=== PATIENT | male | born 1965 | race Caucasian/White ===

== ENCOUNTER 2016-10-17 10:08 | Emergency (ER) | payer BC ==
[2016-10-17 10:28] VITALS: BP 173/82
--- NOTE | 2016-10-17 11:34 | RAD ---
HISTORY: Pain and swelling, left testicle COMPARISONS: None TECHNIQUE: Multiple transverse and longitudinal ultrasound images were obtained of the scrotum, using grayscale, color Doppler, and spectral Doppler imaging. FINDINGS: RIGHT: RIGHT TESTICLE: The right testicle measures 5.6 x 2.5 x 3.4 cm. There is no testicular parenchymal mass. There are 2 microcalcifications noted within the right testicle. Normal arterial and venous waveforms are identified within the right testicle on spectral Doppler imaging. RIGHT EPIDIDYMIS: The right epididymis measures 1.3 cm at the head. RIGHT SCROTUM: There is a small right hydrocele. There is no varicocele. LEFT: LEFT TESTICLE: The left testicle measures 5.1 x 3.7 x 3.3 cm. The left testicle is homogeneous in echotexture, without testicular parenchymal mass. Normal arterial and venous waveforms are identified within the left testicle on spectral Doppler imaging. LEFT EPIDIDYMIS: The left epididymis measures 1.1 cm at the head. LEFT SCROTUM: There is a large left hydrocele. There is no varicocele. OTHER: None IMPRESSION: 1. NO SONOGRAPHIC FEATURES OF TORSION. PLEASE NOTE THAT PARTIAL OR INTERMITTENT TORSION MAY BE SONOGRAPHICALLY NORMAL. 2. NO TESTICULAR PARENCHYMAL MASS. THERE ARE 2 MICROCALCIFICATIONS OF THE RIGHT TESTICLE, WITHOUT MEETING THE CRITERIA FOR TESTICULAR MICROLITHIASIS. 3. LARGE LEFT HYDROCELE. SMALL RIGHT HYDROCELE.
--- NOTE | 2016-10-17 12:10 | UC ---
IMekhi,Anne, scribed for Effie Manning MD on 10/17/16 at 1048 . Complaint Male HPI - HPI Summary HPI Summary: This 51 y/o male presents to [facility] for left testicular swelling that was noted during bath yesterday. Pt denies any testicular pain, penile discharge, or hematuria, but reports that left testicle is tender to touch. He also denies any abd pain, but reports decreased urine flow, "drizzling off" since ~ 1 month ago. PMHx includes HTN, hernia s/p hernia surgeries, and hydrocele. He reports diffuse abd pain secondary to his last hernia surgery. 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 - History of Current Complaint Chief Complaint: UCGeneralIllness Stated Complaint: PERSONAL Hx Obtained From: Patient, Medical Records Onset/Duration: Sudden Onset Timing: Constant Severity Initially: Moderate Severity Currently: Moderate Location: Testicle Character: Constant Pressure Aggravating Factor(s): Nothing Alleviating Factor(s): Nothing Associated Signs And Symptoms: Negative: Dysuria, Penile Swelling, Penile Discharge - Risk Factors Testicular Torsion: Negative - Allergies/Home Medications Allergies/Adverse Reactions: Allergies Allergy/AdvReac Type Severity Reaction Status Date / Time Sulfa Antibiotics Allergy Intermediate Hives Verified 10/17/16 10:17 Home Medications: Home Medications Bp Med 1 tab QPM 10/17/16 [History] Lisinopril TAB* [Prinivil TAB 10 MG*] 20 mg DAILY 10/17/16 [History Confirmed ] PMH/Surg Hx/FS Hx/Imm Hx - Additional Past Medical History Additional PMH: Hydrocele, hernia s/p surgeries. Cardiovascular History Of: Reports: Cardiac Disorders - enlarged heart, Hypertension GI/ History Of: Reports: Gastroesophageal Reflux - Surgical History Surgical History: Yes Surgery Procedure, Year, and Place: umbilical and inguinal hernia repairs. - Family History Known Family History: Positive: Hypertension, Diabetes - Social History Alcohol Use: Rare Substance Use Type: None Smoking Status (MU): Never Smoked Tobacco Review of Systems Constitutional: Negative Skin: Negative Eyes: Negative ENT: Other - tinnitus Respiratory: Negative Cardiovascular: Negative Gastrointestinal: Abdominal Pain - secondary to hernia surgery Genitourinary: Other - left testicular swelling, dribbling urine Motor: Negative Neurovascular: Negative Musculoskeletal: Negative Neurological: Negative Psychological: Negative All Other Systems Reviewed And Are Negative: Yes Physical Exam Triage Information Reviewed: Yes Appearance: Well-Appearing, No Pain Distress, Obese Vital Signs: Initial Vital Signs Temp 98.1 F 10/17/16 10:20 Pulse 78 10/17/16 10:20 Resp 18 10/17/16 10:20 BP 173/82 10/17/16 10:20 Pulse Ox 96 10/17/16 10:20 Vital Signs Reviewed: Yes Eyes: Positive: Conjunctiva Clear ENT: Positive: Normal ENT inspection Neck: Positive: Nontender Respiratory: Positive: Lungs clear, Normal breath sounds, No respiratory distress Cardiovascular: Positive: RRR, No Murmur, Pulses Normal, Brisk Capillary Refill Abdomen Description: Positive: No Organomegaly, Soft, Other: - minimal tenderness around suprapubic region. Negative: Distended, Guarding Musculoskeletal: Positive: ROM Intact Neurological Exam: Normal Psychological Exam: Normal Skin Exam: Normal - Additional Comments exam: Swelling of scrotum. Penis is not visualized due to scrotal swelling. The penis not being visible is unchanged per pt. Only the swelling has increased. Mild tenderness left testicle. Difficult to palpate testicles, due to swelling, but no masses appreciated. Diagnostics - Laboratory Diagnostic Studies Completed/Ordered: US testicular -- 1. NO SONOGRAPHIC FEATURES OF TORSION. PLEASE NOTE THAT PARTIAL OR INTERMITTENT TORSION MAY BE SONOGRAPHICALLY NORMAL. 2. NO TESTICULAR PARENCHYMAL MASS. THERE ARE 2 MICROCALCIFICATIONS OF THE RIGHT TESTICLE,. WITHOUT MEETING THE CRITERIA FOR TESTICULAR MICROLITHIASIS. 3. LARGE LEFT HYDROCELE. SMALL RIGHT HYDROCELE. Re-Evaluation - Re-Evaluation First Eval Re-Evaluation Time: 11:49 Comment: MD in room to share US imaging result with pt. Plan of care Complaint Male Course/Dx - Differential Dx/Diagnosis Differential Diagnosis/HQI/PQRI: Cancer, Testicular Torsion, Other - hydrocele Provider Diagnoses: Hydrocele. testicular microcalcifications Discharge - Discharge Plan Condition: Stable Disposition: HOME Patient Education Materials: Hydrocele (ED) Referrals: Eliz Carbone MD [Primary Care Provider] - 2 Days Guillaume Grove MD [Medical Doctor] - 2 Days Additional Instructions: RETURN TO URGENT CARE FOR ANY NEW OR WORSENING SYMPTOMS The documentation as recorded by the Mekhi lee Soohyun accurately reflects the service I personally performed and the decisions made by Nigel haley Barbara J, MD.
== END 2016-10-17 11:57 | disposition home or self-care (01) ==
LOC: UCEAST 10:08
DX: N43.3 Hydrocele, unspecified (principal); N50.89 Other specified disorders of the male genital organs; Z88.2 Allergy status to sulfonamides
CPT/HCPCS: 76870; 81002; 99211; G0463

== ENCOUNTER 2018-11-27 08:05 | Inpatient (IN) | payer BC ==
[~2018-11-27 08:05] MED LIST: Buffered Lidocaine 1% SYRIN* 1 ML/SYRINGE INTRADERM ONE; Famotidine IV* 10 MG/ML 2 ML (20 mg) IV ONE; Lactated Ringers 1000 ML Bag* 1,000 ML IV SCH
--- OUTSIDE RECORDS SUMMARY | 2018-11-27 08:09 | XMS REPORT | Continuity of Care Document ---
:1965 External Reference #:[id number] Author Name Elba Morse Care Team Providers Name Role Phone Minal Flores MD Care Team Information Altitude Chamber Technician Unavailable Payers Date Identification Numbers Payment Provider Subscriber Effective: 2017 Policy Number: [id number] [facility] [employer] Ignacio Aly PayID: [id number] [address] [address] [place] [id number] Advance Directives Description No Information Available Problems Date Description Provider Status Onset: 09/13/2017 Benign essential hypertension Minal Flores MD Active Onset: 06/05/2018 Morbid obesity Minal Flores MD Active Onset: 06/05/2018 Mixed hyperlipidemia Minal Flores MD Active Onset: 06/05/2018 Obstructive sleep apnea syndrome Minal Flores MD Active Onset: 10/10/2018 Benign prostatic hypertrophy with Minal Flores MD Active outflow obstruction Family History Date Family Member(s) Observation Comments : (age Father due to Natural Causes Unsure causes 75 Years) Father Diabetes, Adult Father Hypertension Father Depression Father Glaucoma Father Hypercholesterolemia Onset: (age 70 Father Cancer, Lung age about 70 Years) diagnosis, long standing smoker Mother Migraine Headache Mother Thyroid Disease First Son Hearing Impaired First Daughter Hearing Impaired First Brother Hypertension First Brother Hypercholesterolemia First Brother Obesity First Sister Hypertension First Sister Obesity Social History Type Date Description Comments Sex Unknown Marital Status Marital Status 2 Times Lives With Spouse Work Status Currently Working shuttle bus driver for [employer] ETOH Use Rarely consumes alcohol Tobacco Use Start: Unknown Patient has never smoked Recreational Drug Use Denies Drug Use Smoking Status Reviewed: 11/13/18 Patient has never smoked Exercise Type/Frequency Exercises sporadically no regular, some walking at work; 09/13/17 counselled 150min per week 10k steps per day [facility] Allergies, Adverse Reactions, Alerts Date Description Reaction Status Severity Comments 09/13/2017 Sulfa Drugs hives Active Severe Medications Medication Date Status Form Strength Qnty SIG Indications Ordering Provider Vesicare Active Tablets 10mg 30tabs 1 by N40.1 [place], 018 mouth Guillaume H every day Lisinopril Active Tablets 40mg 30tabs take one I10 Flores 000 tablet by Minal MD mouth every day Metoprolol 0 Active Tablets ER 50mg 30tabs take one I10 Flores Succinate ER 000 24HR tablet by Minal MD mouth every night Tamsulosin Active Capsules 0.4mg 1 po R35.0 [place], HCL 000 daily at [facility] bedtime N40.1 Amlodipine Active Tablets 5mg 30tabs take one I10 Flores , Besylate tablet by MD Minal mouth every morning Cpap Active Device at hs G47.33 Unknown Naproxen Active Tablets 375mg prn Unknown B-12 Active Capsules 1000mc qd Unknown g Vesicare - Hx Tablets 5mg 1 po daily R35.0 [place]aim[place], 05/17/2018 in the Guillaume [facility] morning Immunizations CPT Code Status Date Vaccine Reaction Lot # [id number] Given 10/10/2018 Tdap (Adacel) Ages 7 And Above Only [id number] Refused 10/10/2018 Shingrix (Shingles) Zoster Vaccine will get at pharmacy HZV, Recombinant, Subunit, Adj [id number] Refused 10/10/2018 Shingrix (Shingles) Zoster Vaccine HZV, Recombinant, Subunit, Adj [id number] Refused 06/05/2018 Flu Vaccine NOS [id number] Refused 04/04/2018 Shingrix (Shingles) Zoster Vaccine HZV, Recombinant, Subunit, Adj [id number] Refused 04/04/2018 Tdap (Adacel) Ages 7 And Above Only [id number] Refused 09/13/2017 Influenza Virus Vaccine,Quadrivalent,Split,Preserv Free, 0.5mL,Im Vital Signs Date Vital Result Comment 11/13/2018 8:53am Body Temperature 97.6 F Weight 405.00 lb Heart Rate 72 /min BP Systolic 148 mmHg BP Diastolic 96 mmHg BP Systolic Recheck 140 mmHg BP Diastolic Recheck 80 mmHg BP Systolic Lying Down 116 mmHg at surgeons on 10/24 BP Diastolic Lying Down 70 mmHg at surgeons on 10/24 Respiratory Rate 20 /min Height 71.75 inches 5'11.75" BMI (Body Mass Index) 55.3 kg/m2 10/18/2018 9:53am Body Temperature 98.0 F Weight 413.00 lb Heart Rate 68 /min BP Systolic 132 mmHg BP Diastolic 90 mmHg Respiratory Rate 18 /min Height 71.75 inches 5'11.75" O2 % BldC Oximetry 97 % Ra BMI (Body Mass Index) 56.4 kg/m2 10/10/2018 9:39am Body Temperature 98.2 F Weight 381.00 lb Heart Rate 71 /min BP Systolic 138 mmHg BP Diastolic 90 mmHg BP Systolic Recheck 138 mmHg BP Diastolic Recheck 88 mmHg Respiratory Rate 20 /min Height 71.75 inches 5'11.75" O2 % BldC Oximetry 95 % ra BMI (Body Mass Index) 52.0 kg/m2 06/05/2018 4:20pm Body Temperature 98.5 F Weight 432.00 lb Heart Rate 74 /min BP Systolic 138 mmHg BP Diastolic 80 mmHg Respiratory Rate 20 /min Height 71.75 inches 5'11.75" BMI (Body Mass Index) 59.0 kg/m2 04/04/2018 2:35pm Weight 432.00 lb Heart Rate 86 /min BP Systolic 150 mmHg BP Diastolic 64 mmHg BP Systolic Recheck 136 mmHg per pt this morning Dot physcial BP Diastolic Recheck 88 mmHg per pt this morning Dot physcial Respiratory Rate 22 /min Height 71.75 inches 5'11.75" BMI (Body Mass Index) 59.0 kg/m2 01/03/2018 4:12pm Weight 416.00 lb Heart Rate 78 /min BP Systolic 136 mmHg BP Diastolic 74 mmHg Respiratory Rate 20 /min Height 71.75 inches 5'11.75" BMI (Body Mass Index) 56.8 kg/m2 10/05/2017 9:29am Weight 424.00 lb Heart Rate 80 /min BP Systolic 138 mmHg BP Diastolic 88 mmHg Respiratory Rate 18 /min Height 71.75 inches 5'11.75" BMI (Body Mass Index) 57.9 kg/m2 09/13/2017 1:33pm Weight 426.00 lb Heart Rate 76 /min BP Systolic 156 mmHg BP Diastolic 88 mmHg BP Systolic Recheck 146 mmHg home BP monitor BP Diastolic Recheck 96 mmHg home BP monitor Respiratory Rate 18 /min Height 71.75 inches 5'11.75" BMI (Body Mass Index) 58.2 kg/m2 Results Test Date Facility Test Result H/L Range Note Comprehensive Met Panel-[facility] 10/18/2018 [facility] Sodium 142 mmol/L 135- 146 1, 2 Potassium 4.0 mmol/L 3.5-5.2 Chloride# 107 mmol/L 97-110 3 Carbon Dioxide 27 mmol/L 24-34 Glucose 107 mg/dL High 70-105 BUN 11 mg/dL 6-26 Creatinine 1.0 mg/dL 0.5-1.4 Calcium 9.4 mg/dL 8.5-10.2 Total Protein 7.1 g/dL 6.0-8.0 Albumin 4.4 g/dL 3.6-4.9 Globulin 2.7 g/dL 2.0-3.5 A/G Ratio 1.6 Ratio 1.0-2.2 Total Bilirubin 1.3 mg/dL 0.1-1.3 Alkaline Phosphatase 64 U/L 24-140 Alt 26 U/L 3-42 Ast 16 U/L 8-42 Anion Gap 8 mmol/L 5-15 4 Yesenia Egfr >60 >60 5 Non Yesenia Egfr >60 >60 6 Rout Urine W/ Micro -RL 10/10/2018 [facility] Color YELLOW Appearance CLEAR Spec Grav Urine 1.021 (1.003-1.030) PH Urine 7.5 (5.0-7.5) Leuk Esterase NEGATIVE (Neg) Nitrite Urine NEGATIVE (Neg) Protein Urine NEGATIVE (Neg) Glucose Urine NEGATIVE (Neg) Ketone Urine NEGATIVE (Neg) Urobilinogen 1.0 mg/dL (0-1.0) Bilirubin Urine NEGATIVE (Neg) Blood/HGB Urine NEGATIVE (Neg) Epithelial Cells NEGATIVE [HPF] (Neg) Hyaline Casts 1.0 [LPF] (0-5) Bacteria NEGATIVE [HPF] (Neg) Urine WBC 0.5 [HPF] (0-8) Urine RBC 0.3 [HPF] (0-3) 7 Laboratory test 10/10/2018 [facility] Urine Culture Microbiology res <SEE 8 finding NOTE> Laboratory test 10/10/2018 [facility] Esr 7 mm/hr 0-15 9 finding CRP (C-Reactive) 0.28 mg/dL 0.00-0.75 CBC with Auto Diff-fcmg 10/10/2018 [facility] WBC 7.8 K/uL 4.1-11.0 RBC 5.11 M/uL 4.60-6.10 Hemoglobin 15.7 gm/dL 13.5-18.0 Hematocrit 45.0 % 41.0-53.0 MCV 88.0 fL 80.0-97.0 MCH 30.7 pg 27.0-32.0 MCHC 34.9 g/dL 32.0-36.0 RDW 14.2 % 11.5-14.5 PLT Count 238 K/ul 140-400 MPV 7.7 FL 7.1-10.7 Neutrophil 60.3 % 35.0-75.0 Lymphocyte 28.8 % 16.0-52.0 Monocyte 8.4 % 2.0-10.0 Eosinophil 1.5 % 0.0-5.0 Basophil 1.0 % 0.0-4.0 Abs Neutrophils 4.7 K/uL 2.1-8.0 Abs Lymphocytes 2.2 K/uL 0.8-5.5 Abs Monocytes 0.7 K/uL 0.1-1.0 Abs Eosinophils 0.1 K/uL 0.0-0.5 Abs Basophils 0.1 K/uL 0.0-0.3 Comprehensive Met Panel-[facility] 10/03/2018 [facility] Sodium 144 mmol/L 135- 146 10, 11 Potassium 3.7 mmol/L 3.5-5.2 Chloride# 110 mmol/L 97-110 12 Carbon Dioxide 24 mmol/L 24-34 Glucose 97 mg/dL 70-105 BUN 16 mg/dL 6-26 Creatinine 0.9 mg/dL 0.5-1.4 Calcium 9.1 mg/dL 8.5-10.2 Total Protein 6.8 g/dL 6.0-8.0 Albumin 4.3 g/dL 3.6-4.9 Globulin 2.5 g/dL 2.0-3.5 A/G Ratio 1.7 Ratio 1.0-2.2 Total Bilirubin 1.2 mg/dL 0.1-1.3 Alkaline Phosphatase 66 U/L 24-140 Alt 21 U/L 3-42 Ast 13 U/L 8-42 Yesenia Egfr >60 >60 13 Non Yesenia Egfr >60 >60 14 Anion Gap 10 mmol/L 5-15 15 Lipid 10/03/2018 [facility] Cholesterol 141 mg/dL 50-199 Triglycerides 90 mg/dL 30-200 HDL 37 mg/dL 29-71 16 Chol/ HDL Ratio 3.8 ratio Low 4.0-6.7 VLDL 18 mg/dL 2-29 LDL (Calc) 86 mg/dL 20-99 17 Laboratory test 06/16/2018 [facility] Vitamin B12 355 pg/ mL N [id number] 18 finding (315)- - Laboratory test 06/16/2018 [facility] Vitamin 24.6 ng/mL Low 30.0-100.0 19 finding (315)- - D,25-Hydroxy Ua RFX Micro & 04/24/2018 [facility] Urine Color YELLOW Yellow 20 Culture II (315)- - Urine Clarity CLEAR Clear Urine Glucose - Dipstick NEGATIVE mg/dL Negative Urine Bilirubin - Dipstick NEGATIVE Negative Urine Ketone NEGATIVE mg/dL Negative Urine Specific [place] 1.010 N 1.010-1.030 Urine Blood NEGATIVE Negative Urine PH 7.0 N 6.5-7.5 Urine Protein - Dipstick NEGATIVE mg/dL Negative Urine Urobilinogen - Dipstick 0.2 E.U./dL N 0.2-1.0 Urine Nitrite - Dipstick NEGATIVE Negative Urine Leuk Esterase NEGATIVE Negative Source: URINE, CLEAN CAT <SEE NOTE> 21 Comprehensive Met Panel-[facility] 03/27/2018 [facility] Sodium 141 mmol/L 135- 146 22, 23 Potassium 3.9 mmol/L 3.5-5.2 Chloride# 105 mmol/L 97-110 24 Carbon Dioxide 27 mmol/L 24-34 Glucose 89 mg/dL 70-105 BUN 13 mg/dL 6-26 Creatinine 1.1 mg/dL 0.5-1.4 Calcium 9.3 mg/dL 8.5-10.2 Total Protein 6.7 g/dL 6.0-8.0 Albumin 4.1 g/dL 3.6-4.9 Globulin 2.6 g/dL 2.0-3.5 A/G Ratio 1.6 Ratio 1.0-2.2 Total Bilirubin 1.2 mg/dL 0.1-1.3 Alkaline Phosphatase 56 U/L 24-140 Alt 33 U/L 3-42 Ast 18 U/L 8-42 Yesenia Egfr >60 >60 25 Non Yesenia Egfr >60 >60 26 Anion Gap 9 mmol/L 5-15 27 Lipid 03/27/2018 [facility] Cholesterol 178 mg/dL 50-199 Triglycerides 147 mg/dL 30-200 HDL 40 mg/dL 29-71 28 Chol/ HDL Ratio 4.4 ratio 4.0-6.7 VLDL 29 mg/dL 2-29 LDL (Calc) 108 mg/dL High 20-99 29 CBC With Auto Diff 09/13/2017 [facility] WBC 8.3 K/uL 4.1-11.0 30 RBC 5.09 M/uL 4.60-6.10 Hemoglobin 15.6 gm/dL 13.5-18.0 Hematocrit 45.2 % 41.0-53.0 MCV 88.9 fL 80.0-97.0 MCH 30.6 pg 27.0-32.0 MCHC 34.4 g/dL 32.0-36.0 RDW 14.0 % 11.5-14.5 PLT Count 289 K/ul 140-400 MPV 6.9 FL Low 7.1-10.7 Neutrophil 55.2 % 35.0-75.0 Lymphocyte 31.4 % 16.0-52.0 Monocyte 11.1 % High 2.0-10.0 Eosinophil 1.7 % 0.0-5.0 Basophil 0.6 % 0.0-4.0 Abs Neutrophils 4.6 K/uL 2.1-8.0 Abs Lymphocytes 2.6 K/uL 0.8-5.5 Abs Monocytes 0.9 K/uL 0.1-1.0 Abs Eosinophils 0.1 K/uL 0.0-0.5 Abs Basophils 0.1 K/uL 0.0-0.3 Comprehensive Met Panel-[facility]G 09/13/2017 [facility] Sodium 143 mmol/L 135- 146 31 Potassium 3.8 mmol/L 3.5-5.2 Chloride# 106 mmol/L 97-110 32 Carbon Dioxide 26 mmol/L 24-34 Glucose 101 mg/dL 70-105 Creatinine 0.9 mg/dL 0.5-1.4 Calcium 9.8 mg/dL 8.5-10.2 Total Protein 7.3 g/dL 6.0-8.0 Albumin 4.4 g/dL 3.6-4.9 Globulin 2.9 g/dL 2.0-3.5 A/G Ratio 1.5 Ratio 1.0-2.2 Total Bilirubin 0.8 mg/dL 0.1-1.3 Alkaline Phosphatase 62 U/L 24-140 Alt 29 U/L 3-42 Ast 16 U/L 8-42 Yesenia Egfr >60 >60 33 Non Yesenia Egfr >60 >60 34 Anion Gap 11 mmol/L 7-16 35 BUN 15 mg/dL 6-26 Lipid 09/13/2017 [facility] Cholesterol 173 mg/dL 50-199 Triglycerides 203 mg/dL High 30-200 HDL 40 mg/dL 29- 36 Chol/ HDL Ratio 4.4 ratio 4.0-6.7 VLDL 41 mg/dL High 2-29 LDL (Calc) 93 mg/dL - 37 Laboratory test finding 09/13/2017 [facility] TSH 1.46 uIU/mL 0.35-4.[address] and abd pain 2 Updated reference range on new analyzer 3 Updated reference range on new analyzer 4 Updated Reference Range 5 Concerning GFR Guidelines for Americans: Normal function or mild renal disease, if clinically at risk: >/=60 mL/min Moderately decreased: 30-59 Severely decreased: 15-29 Renal failure: <15 6 Concerning GFR Guidelines: Normal function or mild renal disease, if clinically at risk: >/=60 mL/min Moderately decreased: 30-59 Severely decreased: 15-29 Renal failure: <15 Glomerular Filtration Rate (GFR) is estimated based on the MDRD equation, which assumes a steady state for creatinine as recommended by the National Kidney Disease Education Program in conjunction with the National Institutes of Health and the National Kidney Foundation. Clinical conditions in which it may be necessary to measure GFR by using clearance methods include extremes of age and body size, severe malnutrition or obesity, diseases of skeletal muscle, paraplegia or quadriplegia, vegetarian diet, rapidly changing kidney function, and calculation of the dose of potentially toxic drugs that are excreted by the kidneys. 7 Unless otherwise specified, testing performed by [facility] [address] [place] [id number] Microbiology results SOURCE Clean Catch Midstream FINAL RESULT No growth 9 today abd pain, US pending 10 before vsiit 09/2018 11 Updated reference range on new analyzer 12 Updated reference range on new analyzer 13 Concerning GFR Guidelines for Americans: Normal function or mild renal disease, if clinically at risk: >/=60 mL/min Moderately decreased: 30-59 Severely decreased: 15-29 Renal failure: <15 14 Concerning GFR Guidelines: Normal function or mild renal disease, if clinically at risk: >/=60 mL/min Moderately decreased: 30-59 Severely decreased: 15-29 Renal failure: <15 Glomerular Filtration Rate (GFR) is estimated based on the MDRD equation, which assumes a steady state for creatinine as recommended by the National Kidney Disease Education Program in conjunction with the National Institutes of Health and the National Kidney Foundation. Clinical conditions in which it may be necessary to measure GFR by using clearance methods include extremes of age and body size, severe malnutrition or obesity, diseases of skeletal muscle, paraplegia or quadriplegia, vegetarian diet, rapidly changing kidney function, and calculation of the dose of potentially toxic drugs that are excreted by the kidneys. 15 Updated Reference Range 16 Per NCEP ATP III Guidelines: Results lower than 40 mg/dL are suggestive of increased risk for coronary artery disease. Results > or=to 60 mg/dL are considered a negative risk factor. 17 Per NCEP ATP III Guidelines: Normal Population <130 Patients with medical conditions: CHD/DM Optimal: <100 Borderline high: 130-159 High: 160-189 Very high: >189 18 E66.01 19 Vitamin D deficiency has been defined by the [place] of [employer] and an Endocrine Society practice guideline as a level of serum 25-OH vitamin D less than 20 ng/mL (1,2). The Endocrine Society went on to further define vitamin D insufficiency as a level between 21 and 29 ng/mL (2). 1. IOM ([place] of [employer]). 2010. Dietary reference intakes for calcium and D. [place]: The National Academies Press. 2. Jairon MF, Anne NC, Salvador BARBOZA, et al. Evaluation, treatment, and prevention of vitamin D deficiency: an Endocrine Society clinical practice guideline. JCEM. 2010; 96(7):1911-30. Performed at: RN - [facility] [address] [id number] Supervisor Advice: Cherise Luis MD, Phone: [phone] 20 LOWER LEFT BACK PAIN 21 URINE, CLEAN CATCH 22 before visit 03/2018 23 Updated reference range on new analyzer 24 Updated reference range on new analyzer 25 Concerning GFR Guidelines for Americans: Normal function or mild renal disease, if clinically at risk: >/=60 mL/min Moderately decreased: 30-59 Severely decreased: 15-29 Renal failure: <15 26 Concerning GFR Guidelines: Normal function or mild renal disease, if clinically at risk: >/=60 mL/min Moderately decreased: 30-59 Severely decreased: 15-29 Renal failure: <15 Glomerular Filtration Rate (GFR) is estimated based on the MDRD equation, which assumes a steady state for creatinine as recommended by the National Kidney Disease Education Program in conjunction with the National Institutes of Health and the National Kidney Foundation. Clinical conditions in which it may be necessary to measure GFR by using clearance methods include extremes of age and body size, severe malnutrition or obesity, diseases of skeletal muscle, paraplegia or quadriplegia, vegetarian diet, rapidly changing kidney function, and calculation of the dose of potentially toxic drugs that are excreted by the kidneys. 27 Updated Reference Range 28 Per NCEP ATP III Guidelines: Results lower than 40 mg/dL are suggestive of increased risk for coronary artery disease. Results > or=to 60 mg/dL are considered a negative risk factor. 29 Per NCEP ATP III Guidelines: Normal Population <130 Patients with medical conditions: CHD/DM Optimal: <100 Borderline high: 130-159 High: 160-189 Very high: >189 30 today ov fu 31 Updated reference range on new analyzer 32 Updated reference range on new analyzer 33 Concerning GFR Guidelines for Americans: Normal function or mild renal disease, if clinically at risk: >/=60 mL/min Moderately decreased: 30-59 Severely decreased: 15-29 Renal failure: <15 34 Concerning GFR Guidelines: Normal function or mild renal disease, if clinically at risk: >/=60 mL/min Moderately decreased: 30-59 Severely decreased: 15-29 Renal failure: <15 Glomerular Filtration Rate (GFR) is estimated based on the MDRD equation, which assumes a steady state for creatinine as recommended by the National Kidney Disease Education Program in conjunction with the National Institutes of Health and the National Kidney Foundation. Clinical conditions in which it may be necessary to measure GFR by using clearance methods include extremes of age and body size, severe malnutrition or obesity, diseases of skeletal muscle, paraplegia or quadriplegia, vegetarian diet, rapidly changing kidney function, and calculation of the dose of potentially toxic drugs that are excreted by the kidneys. 35 Updated reference range on new analyzer 36 Per NCEP ATP III Guidelines: Results lower than 40 mg/dL are suggestive of increased risk for coronary artery disease. Results > or=to 60 mg/dL are considered a negative risk factor. 37 Per NCEP ATP III Guidelines: Normal Population <130 Patients with medical conditions: CHD/DM Optimal: <100 Borderline high: 130-159 High: 160-189 Very high: >189 Procedures Date Code Description Status 11/13/2018 46420 Electrocardiogram Complete Completed 10/10/2018 43241 Brief Emotional/Behav Assessment W/ Scoring Doc Per Completed Standard Inst 01/23/2017 40809285 Colonoscopy Completed Encounters Type Date Location Provider Dx Diagnosis Office Visit 10/18/2018 [facility] Minal Flores, R10.812 LEFT upper quadrant 9:45a abdominal tenderness E66.01 Morbid (severe) obesity due to excess calories N28.1 Cyst of kidney, acquired R19.05 Periumbilic swelling, mass or lump Z68.43 Body mass index (BMI) 50-59.9, adult Office Visit 10/10/2018 9:30a [facility] Minal Flores MD R10.812 LEFT upper quadrant abdominal tenderness Z00.01 Encounter for general adult medical exam w abnormal findings I10 Essential (primary) hypertension E78.2 Mixed hyperlipidemia E66.01 Morbid (severe) obesity due to excess calories G47.33 Obstructive sleep apnea (adult) (pediatric) Z23 Encounter for immunization Z12.5 Encounter for screening for malignant neoplasm of prostate Z12.11 Encounter for screening for malignant neoplasm of colon N40.1 Benign prostatic hyperplasia with lower urinary tract symp Z68.44 Body mass index (BMI) 60.0-69.9, adult Z68.43 Body mass index (BMI) 50-59.9, adult Office Visit 06/05/2018 4:00p [facility] Minal Flores MD E66.01 Morbid ( severe) obesity due to excess calories I10 Essential (primary) hypertension E78.2 Mixed hyperlipidemia G47.33 Obstructive sleep apnea (adult) (pediatric) Z68.43 Body mass index (BMI) 50-59.9 , adult Office Visit 04/04/2018 3:00p [facility] Minal Flores MD I10 Essential ( primary) hypertension E78.2 Mixed hyperlipidemia G47.33 Obstructive sleep apnea (adult) (pediatric) R20.2 Paresthesia of skin R60.0 Localized edema R35.0 Frequency of micturition E66.01 Morbid (severe) obesity due to excess calories Z68.43 Body mass index (BMI) 50-59.9 , adult Office Visit 01/03/2018 4:00p [facility] Minal Flores MD M25.562 Pain in LEFT knee I10 Essential (primary) hypertension E78.2 Mixed hyperlipidemia K62.5 Hemorrhage of anus and rectum G47.33 Obstructive sleep apnea (adult) (pediatric) R35.0 Frequency of micturition E66.01 Morbid (severe) obesity due to excess calories Z68.43 Body mass index (BMI) 50-59.9 , adult Office Visit 10/05/2017 9:30a [facility] Minal Flores MD I10 Essential ( primary) hypertension E78.2 Mixed hyperlipidemia K62.5 Hemorrhage of anus and rectum G47.33 Obstructive sleep apnea (adult) (pediatric) R35.0 Frequency of micturition Z68.43 Body mass index (BMI) 50-59.9 , adult Office Visit 09/13/2017 1:30p [facility] Minal Flores MD K62.5 Hemorrhage of anus and rectum I10 Essential (primary) hypertension G47.33 Obstructive sleep apnea (adult) (pediatric) E66.01 Morbid (severe) obesity due to excess calories R35.0 Frequency of micturition H93.13 Tinnitus, bilateral Z68.43 Body mass index (BMI) 50-59.9 , adult Plan of Treatment Future Appointment(s):12/26/2018 9:00 am - Minal Flores MD at [facility]2018 - Minal Flores MDE66.01 Morbid (severe) obesity due to excess caloriesComments:Morbid obesityfor gastric sleevecontineu bariatric plantake meds around time of surgery per surgeonFollow up:next visit first week of December , about 4 weeks post op, for HTN recheck [id number] Encounter for other preprocedural examinationComments:Pt appears cardiopulmonary stable for proposed surgery. A copy of this note and ekg are forwarded tothe requesting surgeon. Dr Alvarez pt advised to get flu vax.R10.812 LEFT upper quadrant abdominal tendernessComments:much better, felt to be due to leaning on car kripvvZ72 Essential (primary) hypertensionComments:Htn--BPs appear to be fluctuating still, pt to continue current eds and monitor bp perioperatively. I woul gayathriike to see him about 4 weeks after surgery to followup. Continue current meds for now. . Encouraged pt to continue to monitor BP and call if > 140/ 90 on a regular basis. Please call ifyou feel your blood pressure is under 110 systolic and/or causing you symptoms such as dizziness, lightheadedness, or other concerns.E78.2 Mixed hyperlipidemiaComments:HIgh chol, moderate risk, discussed perioperatlive risk reduction for mi and stroke with use of statins, he declines.G47.33 Obstructive sleep apnea (adult) (pediatric)Comments:sleep apnea stable. cont care with Dr Yeager continue cpap Cautioned if not adequately treated, low oxygen levels can lead to fibre optic cable splicer stroke or heart attack, as well as sleepiness that can lead to motor vehicle and other accidents.N40.1 Benign prostatic hyperplasia with lower urinary tract symptoComments:cont meds [id number] Abnormal electrocardiogram [ECG] [EKG]Comments:EKG shows sinus rhythm, minimal voltage criteria for LVH, thereh s a machine read for possible old ant infarct, poor r wave progreamssion, but may be lead placement. I have no prior to compare. His review of symptoms is normal and exercise tolerance is good. No further workup needed unless develops sxs.Z68.43 Body mass index (BMI) 50-59.9, adultComments:plans for surgery
--- OUTSIDE RECORDS SUMMARY | 2018-11-27 08:09 | XMS REPORT | Continuity of Care Document ---
:1965 External Reference #:[id number] Author Name Minal Flores MD Address [address] [place] [address] Care Team Providers Name Role Phone Minal Flores MD Care Team Information Event Specialist Food Demonstrator Unavailable Payers Date Identification Numbers Payment Provider Subscriber Effective: 2017 Policy Number: [id number] [facility] [employer] Ignacio Aly PayID: [id number] [address] [address] [place] [address] Advance Directives Description No Information Available Problems [...] Lives With Spouse Work Status Currently Working solo truck driver for [employer] ETOH Use Rarely consumes alcohol Tobacco Use [...] Form Strength Qnty SIG Indications Ordering Provider Vesicamarquis Active Tablets 10mg 30tabs 1 by N40.1 [place], 018 mouth [facility] every day Lisinopril Active Tablets 40mg 30tabs take one I10 Flores 000 tablet by Minal MD mouth every day Metoprolol Active Tablets ER 50mg 30tabs take one I10 Flores Succinate ER 000 24HR tablet by Minal MD mouth every night Tamsulosin Active Capsules 0.4mg 1 po R35.0 [place], HCL 000 daily at [facility] bedtime N40.1 Amlodipine Active Tablets 5mg 30tabs take one I10 Flores , Besylate tablet by MD Minal mouth every morning Cpap Active Device at hs G47.33 Unknown Naproxen Active Tablets 375mg prn Unknown B-12 Active Capsules 1000mc qd Unknown g Vesicare - Hx Tablets 5mg 1 po daily R35.0 [facility], 05/17/2018 in the [facility] morning Immunizations CPT Code Status Date Vaccine Reaction Lot # [id number] Given 10/10/2018 Tdap (Adacel) Ages 7 And Above Only [id number] Refused 10/10/2018 Shingrix (Shingles) Zoster Vaccine will get at pharmacy HZV, Recombinant, Subunit, Adj [id number] Refused 10/10/2018 Shingrix (Shingles) Zoster Vaccine HZV, Recombinant, Subunit, Adj [id number] Refused 06/05/2018 Flu Vaccine NOS [id number] Refused 04/04/2018 Shingrix (Shingles) Zoster Vaccine HZV, Recombinant, Subunit, Adj [id number] Refused 04/04/2018 Tdap (Adacel) Ages 7 And Above Only 55256 Refused 09/13/2017 Influenza Virus Vaccine,Quadrivalent,Split,Preserv Free, 0.5mL,Im [...] <SEE 8 finding NOTE> Laboratory test 10/10/2018 [facility] 7 mm/hr 0-15 9 finding CRP (C-Reactive) 0.28 mg/dL 0.00-0.75 CBC with Auto Diff-fcmg 10/10/2018 [facility] WBC 7.8 K/uL 4.1-11.0 RBC 5.11 M/uL [...] 0.1 K/uL 0.0-0.3 Comprehensive Met Panel-[facility]CMG 10/03/2018 [facility] Sodium 144 mmol/L 135- 146 10, 11 [...] 86 mg/dL 20-99 17 Laboratory test 06/16/2018 [facility] Vitamin B12 355 pg/ mL N 193-986 18 finding (315)- - Laboratory test 06/16/2018 [facility] Vitamin 24.6 ng/mL Low 30.0-100.0 19 finding (315)- - D,25-Hydroxy Ua RFX Micro & 04/24/2018 [facility] Urine Color YELLOW Yellow 20 Culture II (315)- - Urine Clarity CLEAR Clear Urine Glucose - Dipstick NEGATIVE mg/dL Negative Urine Bilirubin - Dipstick NEGATIVE Negative Urine Ketone NEGATIVE mg/dL Negative Urine Specific [place] 1.010 N 1.010-1.030 Urine Blood NEGATIVE Negative [...] mg/dL High 2-29 LDL (Calc) 93 mg/dL 20- 37 Laboratory test finding 09/13/2017 [facility] [...] Unless otherwise specified, testing performed by [facility] [address] [place] [phone] Microbiology results SOURCE Clean Catch Midstream [...] D deficiency has been defined by the [place] of [employer] and an Endocrine Society practice guideline as a level of serum 25-OH vitamin D less than 20 ng/mL (1,2). The Endocrine Society went on to further define vitamin D insufficiency as a level between 21 and 29 ng/mL (2). 1. IOM ([place] of [employer]). 2010. Dietary reference intakes for calcium and D. [place]: The National Academies Press. 2. Jairon MF, [place], Salvador BARBOZA, et al. Evaluation, treatment, and prevention of vitamin D deficiency: an Endocrine Society clinical practice guideline. JCEM. 2010; 96(7):1911-30. Performed at: RN - [facility] [address] [id number] Cloth Wire Weaver: Cherise Luis MD, Phone: [phone] 20 LOWER LEFT BACK PAIN 21 URINE, [...] >189 Procedures Date Code Description Status 11/13/2018 66851 Electrocardiogram Complete Completed 10/10/2018 57315 Brief Emotional/Behav Assessment W/ Scoring Doc Per Completed Standard Inst 01/23/2017 34619977 Colonoscopy Completed Encounters Type Date Location Provider Dx Diagnosis Office Visit 10/18/2018 [facility] Minal Flores, R10.812 LEFT upper quadrant 9:45a MD abdominal tenderness E66.01 Morbid (severe) obesity due to excess calories N28.1 Cyst of kidney, acquired R19.05 Periumbilic swelling, mass or lump Z68.43 Body mass index (BMI) 50-59.9, adult Office Visit 10/10/2018 9:30a [facility] Minal Flores MD R10.812 LEFT upper quadrant [...] (BMI) 50-59.9, adult Office Visit 06/05/2018 4:00p [facility] Minal Flores MD E66.01 Morbid ( severe) obesity due to excess calories I10 Essential (primary) hypertension E78.2 Mixed hyperlipidemia G47.33 Obstructive sleep apnea (adult) (pediatric) Z68.43 Body mass index (BMI) 50-59.9 , adult Office Visit 04/04/2018 3:00p [facility] Minal Flores MD I10 Essential ( primary) hypertension E78.2 Mixed hyperlipidemia G47.33 Obstructive sleep apnea (adult) (pediatric) R20.2 Paresthesia of skin R60.0 Localized edema R35.0 Frequency of micturition E66.01 Morbid (severe) obesity due to excess calories Z68.43 Body mass index (BMI) 50-59.9 , adult Office Visit 01/03/2018 4:00p [facility] Minal Flores MD M25.562 Pain in LEFT knee I10 Essential (primary) hypertension E78.2 Mixed hyperlipidemia K62.5 Hemorrhage of anus and rectum G47.33 Obstructive sleep apnea (adult) (pediatric) R35.0 Frequency of micturition E66.01 Morbid (severe) obesity due to excess calories Z68.43 Body mass index (BMI) 50-59.9 , adult Office Visit 10/05/2017 9:30a [facility] Minal Flores MD I10 Essential ( primary) hypertension E78.2 Mixed hyperlipidemia K62.5 Hemorrhage of anus and rectum G47.33 Obstructive sleep apnea (adult) (pediatric) R35.0 Frequency of micturition Z68.43 Body mass index (BMI) 50-59.9 , adult Office Visit 09/13/2017 1:30p [facility] Minal Flores MD K62.5 Hemorrhage of anus and rectum I10 Essential (primary) hypertension G47.33 Obstructive sleep apnea (adult) (pediatric) E66.01 Morbid (severe) obesity due to excess calories R35.0 Frequency of micturition H93.13 Tinnitus, bilateral Z68.43 Body mass index (BMI) 50-59.9 , adult Plan of Treatment Future Appointment(s):12/26/2018 9:00 am - Minal Flores MD at [facility]2018 - Minal Flores MDE66.01 Morbid (severe) obesity due to excess caloriesComments:Morbid obesityfor gastric sleevecontineu bariatric plantake meds around time of surgery per surgeonFollow up:next visit first week of December , about 4 weeks post op, for HTN recheck vj72N01.818 Encounter for other preprocedural examinationComments:Pt appears cardiopulmonary stable for proposed surgery. A copy of this note and ekg are forwarded tothe requesting surgeon. Dr Alvarez pt advised to get flu vax.R10.812 LEFT upper quadrant abdominal tendernessComments:much better, felt to be due to leaning on car [id number] Essential (primary) hypertensionComments:Htn--BPs appear to be fluctuating [...] treated, low oxygen levels can lead to kindergarten aide stroke or heart attack, as well as sleepiness that can lead to motor vehicle and other accidents.N40.1 Benign prostatic hyperplasia with lower urinary tract symptoComments:cont meds [id number] Abnormal electrocardiogram [ECG] [EKG]Comments:EKG shows sinus rhythm, [...]
[2018-11-27] MEDS ORDERED: ceFAZolin 1 GM ADVAN(*) 1 GM ADDV.VIAL IVPB ONE (08:20)
[2018-11-27] MEDS ORDERED: Famotidine IV* 10 MG/ML 2 ML (20 mg) ONE (08:20)
[2018-11-27] MEDS ORDERED: Heparin VIAL(*) 5000 UNITS/ML VIAL (FIVE THOUSAND) ONE (08:20)
[2018-11-27] MEDS ORDERED: Buffered Lidocaine 1% SYRIN* 1 ML/SYRINGE INTRADERM ONE (08:20)
[2018-11-27] MEDS ORDERED: ceFAZolin 2 GM PREMIX in ORs 2 GM/50 ML BAG IVPB ONE (08:20)
[2018-11-27] MEDS ORDERED: Midazolam* 1 MG/ML 5 ML VIAL (5 MG) ONE (09:04)
[2018-11-27] MEDS ORDERED: fentaNYL* 50 MCG/ML 2 ML VIAL (100 MCG VIAL) ONE ×2 (09:04→11:16)
[2018-11-27] MEDS ORDERED: Bupivacaine 0.5% W/EPI SDV* 30 ML VIAL ONE (10:44)
[2018-11-27] MEDS ORDERED: HYDROmorphone INJ1* 1 MG/ML SYRINGE IV PRN (11:40)
[2018-11-27] MEDS ORDERED: Acetaminophen IV 1GM/100ML * 1,000 MG/100 ML VIAL IVPB ONE (11:40)
[2018-11-27] MEDS ORDERED: Naloxone* 0.4 MG/ML 1 ML VIAL IV PRN (11:40)
[2018-11-27] MEDS ORDERED: DiMENhydriNATE IV* 50 MG/ML VIAL IV PUSH PRN (11:40)
[2018-11-27] MEDS ORDERED: DiMENhydriNATE IV* 50 MG/ML VIAL ONE (11:51)
[2018-11-27] MEDS ORDERED: Ketorolac INJ* 30 MG/ML 1 ML VIAL ONE (11:51)
[2018-11-27] MEDS ORDERED: Propofol* 10 MG/ML 20 ML BTL ONE (11:51)
[2018-11-27] MEDS ORDERED: Lidocaine 2% PF * 5 ML VIAL ONE (11:51)
[2018-11-27] MEDS ORDERED: Ondansetron INJ* 2 MG/ML VIAL ONE ×2 (11:51→14:29)
[2018-11-27] MEDS ORDERED: Dexamethasone IV* 4 MG/ML 1 ML (4 MG) ONE (11:51)
[2018-11-27] MEDS ORDERED: EPHEDrine (Pressors)* 50 MG/ML VIAL ONE (12:01)
[2018-11-27] MEDS ORDERED: HYDROmorphone INJ1* 1 MG/ML SYRINGE ONE ×2 (12:22→14:16)
[2018-11-27] MEDS ORDERED: Acetaminophen ADULT LIQ* 650 MG/20.3 ML UDC PO PRN (12:31)
[2018-11-27] MEDS ORDERED: HYDROmorphone INJ* 0.5 MG/0.5 ML SYRINGE IV SLOW PU PRN (12:31)
[2018-11-27] MEDS ORDERED: Ketorolac INJ* 30 MG/ML 1 ML VIAL IV PRN (12:31)
[2018-11-27] MEDS ORDERED: Metoprolol Tartrate IV* 1 MG/ML 5 ML VIAL IV PRN (12:31)
[2018-11-27] MEDS ORDERED: HYDROcodone/ACET. 7.5/325 LIQ* 15 ML UDC PO PRN (12:31)
[2018-11-27] MEDS ORDERED: Ondansetron INJ* 2 MG/ML VIAL IV PRN (12:31)
--- NOTE | 2018-11-27 12:31 | OP ---
Operative Report - Blank - Operative Report Date of Operation: 11/27/18 Note: Brief Operative Note Preop Dx: morbid obesity Postop Dx: same Procedure: laparoscopic sleeve gastrectomy Anesthesia: GET Surgeon: [employer] Caser: Alec Fluids: 1400 ml RL EBL: < 20 ml Specimen: portion stomach Drains: none Findings: dictated
[2018-11-27] MEDS ORDERED: Acetaminophen IV 1GM/100ML * 100 ML ONE (12:51)
[2018-11-27] MEDS ORDERED: Heparin VIAL(*) 5000 UNITS/ML VIAL (FIVE THOUSAND) SUBCUT SCH (14:00)
[2018-11-27] MEDS: Lactated Ringers 1000 ML Bag* 1,000 ML IV SCH ×2 (14:22→20:48)
[2018-11-27] MEDS ORDERED: HYDROmorphone INJ1* 1 MG/ML SYRINGE IV SLOW PU PRN (14:53)
[2018-11-27] MEDS: HYDROmorphone INJ1* 1 MG/ML SYRINGE IV SLOW PU PRN ×2 (17:27→20:59)
[2018-11-27] MEDS: Heparin VIAL(*) 5000 UNITS/ML VIAL (FIVE THOUSAND) SUBCUT SCH (17:27)
[2018-11-27] MEDS ORDERED: Rocuronium* 10 MG/ML VIAL ONE (17:56)
[2018-11-27] MEDS ORDERED: Succinylcholine* 20 MG/ML 10 ML VIAL ONE (17:56)
[2018-11-27] MEDS: Famotidine IV* 10 MG/ML 2 ML (20 mg) IV SLOW PU SCH (22:08)
--- NOTE | 2018-11-28 00:05 | OP ---
CC: [facility]; Minal Flores MD * DATE OF OPERATION: 11/27/18 - ROOM #353 DATE OF : 67 SURGEON: Joshua Corona MD INSULATION BATTING MACHINE OPERATOR: Dr. Michael. ANESTHESIOLOGIST: Dr. Smith. ANESTHESIA: General endotracheal. PRE-OP DIAGNOSIS: Morbid obesity. POST-OP DIAGNOSIS: Morbid obesity. OPERATIVE PROCEDURE: Laparoscopic sleeve gastrectomy. ESTIMATED BLOOD LOSS: Minimal. IV FLUIDS: Crystalloid. SPECIMEN: Portion of stomach. DRAINS: None. COMPLICATIONS: None. COUNTS: The instruments, needle, and sponge counts were correct. DESCRIPTION OF PROCEDURE: The patient was brought to the operating room and placed on the table supine. Sequential compression devices were placed on both lower extremities. General anesthesia was administered. Appropriate intravenous antibiotics were administered. He was prepped and draped in the usual sterile fashion and time-out was performed. Local anesthetic was infiltrated into the skin and soft tissue prior to making each incision. Entry to the abdomen was through a left upper quadrant incision accommodating a 5 mm optical trocar. After accessing the peritoneal cavity, carbon dioxide was insufflated to a pressure of 15 mmHg. Under direct visualization, 12- mm trocar was placed in the supraumbilical, midline and right upper quadrant. Additional 5-mm trocar was placed in the left upper quadrant laterally. A Jagdeep liver retractor was placed percutaneously in the subxiphoid position and used to elevate the left lobe of the liver. The gastric anatomy appeared normal. Mobilization of the stomach was performed starting at 6 cm proximal to the pylorus on the greater curvature. The greater curvature was skeletonized using a LigaSure, dividing all the short gastric vessels up to and including posterior short gastrics at the fundus. Next, a sleeve gastrectomy was performed over a 40-Algerian Bougie using the EndoGIA stapler with purple cartridges with reinforcement. After completing the sleeve gastrectomy, the Bougie was removed without difficulty. The specimen was retrieved through the right upper quadrant port site, which was then closed with a 0 Vicryl. Hemostasis was assured. The remaining portion removed under direct visualization, carbon dioxide was released. The wounds were closed with 4-0 Monocryl, for the skin Steri-Strips and dressings were applied. The patient was extubated uneventfully and transferred to Recovery in stable condition. [id number]/[facility] #: [id number] [facility] HOSPITALMarisol
[2018-11-28] MEDS: Heparin VIAL(*) 5000 UNITS/ML VIAL (FIVE THOUSAND) SUBCUT SCH ×3 (01:55→16:33)
[2018-11-28] MEDS: Lactated Ringers 1000 ML Bag* 1,000 ML IV SCH ×2 (03:52→10:55)
--- NOTE | 2018-11-28 06:55 | PN ---
Progress Note - Progress Note Date of Service: 11/28/18 SOAP: Subjective: Pt is having minimal pain. No N/V. Slept poorly. Objective: Vital Signs Temp 98.2 F 11/28/18 03:54 Pulse 83 11/28/18 03:54 Resp 16 11/28/18 03:54 BP 148/86 11/28/18 03:54 Pulse Ox 97 11/28/18 03:54 Gen: NAD; sleeping but arousable. Abd: dressings c/d/i; soft and min tender. Ext: warm. Intake & Output 11/27/18 11/27/18 11/28/18 06:59 18:59 06:59 Intake Total 0 980 Output Total 1722029 Balance -1725 -1050 Weight 286 lb Intake: IV Fluids 980 LR 980 Oral 0 0 Output: Urine 1724 2029 Other: # Bowel Movements 0 Assessment: POD#1 s/p LSG. Plan: Adv diet. Ambulate/pulm toilet. Likely home AM.
[2018-11-28] MEDS: Famotidine IV* 10 MG/ML 2 ML (20 mg) IV SLOW PU SCH ×2 (09:28→22:29)
[2018-11-28] MEDS: D5W 1/2 NS KCl 20 Meq 1000 ML* 1,000 ML IV SCH ×2 (14:50→22:40)
[2018-11-28] MEDS: amLODIPine TAB* 5 MG PO SCH (16:33)
[2018-11-28] MEDS ORDERED: Metoprolol Succinate XL TAB* 50 MG PO SCH (18:00)
[2018-11-28] MEDS ORDERED: CMC:Solifenacin(NF) 5 MG TAB PO SCH (18:00)
[2018-11-28] MEDS ORDERED: Tamsulosin CAP* 0.4 MG PO SCH (18:00)
[2018-11-29] MEDS: Heparin VIAL(*) 5000 UNITS/ML VIAL (FIVE THOUSAND) SUBCUT SCH ×2 (01:30→10:28)
--- NOTE | 2018-11-29 09:54 | PN ---
Progress Note - Progress Note Date of Service: 11/29/18 SOAP: Subjective: Tolerating diet. +flatus. No N/V or abd pain. Objective: Vital Signs Temp 97.8 F 11/29/18 07:50 Pulse 76 11/29/18 07:50 Resp 18 11/29/18 07:50 BP 125/67 11/29/18 07:50 Pulse Ox 95 11/29/18 07:50 Gen: NAD. Abd: incisions c/d/i; no erythema/ecchymosis; soft; NT. Intake & Output 11/28/18 11/29/18 11/29/18 18:59 06:59 18:59 Intake Total 650 840 981 Output Total 2695 1450 790 Balance -5 -610 191 Intake: IV Fluids 981 D5W 1/2 NS 20 meq KCL 981 Oral 650 840 Output: Urine 2695 1450 790 Other: Estimated Void Small Assessment: POD#2 s/p LSG. Doing well. Plan: Home today. RTO 1week.
[2018-11-29] MEDS: amLODIPine TAB* 5 MG PO SCH (10:28)
[2018-11-29] MEDS: Famotidine IV* 10 MG/ML 2 ML (20 mg) IV SLOW PU SCH (10:28)
--- NOTE | 2018-11-29 12:10 | DS ---
CC: Dr. Minal Flores* DISCHARGE SUMMARY: DATE OF ADMISSION: 11/27/18 DATE OF DISCHARGE: 11/29/18 ATTENDING SURGEON: Dr. Joshua Corona* (dictated by SARAH Oropeza). HOSPITAL COURSE: Please refer to admission history and physical and operative note for details. The patient was taken to the operating room on 11/27/18 at which time he underwent a laparoscopic sleeve gastrectomy with Dr. Corona. The surgery and postoperative course have been uneventful with gradual improvement in pain and toleration of bariatric clear liquids. As of the morning of discharge, he was afebrile and vital signs were stable (see separate progress note from Dr. Corona). The patient will resume his usual home meds with the exception that he will hold lisinopril. He will also monitor his blood pressures at home. He was given instructions regarding wound care activity and diet. He has a followup appointment at [facility] next week with Dr. Corona and a followup with his primary care office in approximately 1 month. He was discharged to home in good condition. SARAH OROPEZA [id number]/[facility] #: [id number] MTDMarisol
[2018-11-29 13:41] VITALS: BP 142/75
== END 2018-11-29 12:50 | disposition home or self-care (01) | DRG 403 ==
LOC: AA 08:05 → SSU 12:31
PROVIDERS: ADMIT Surgery; ATTEND Surgery
PROC: 0DB64Z3 Excision of Stomach, Percutaneous Endoscopic Approach, Vertical (ICD-10-PCS; principal; 2018-11-27 10:15)
DX: E66.01 Morbid (severe) obesity due to excess calories (principal); I10 Essential (primary) hypertension; G47.33 Obstructive sleep apnea (adult) (pediatric); M17.0 Bilateral primary osteoarthritis of knee; E66.9 Obesity, unspecified; K21.9 Gastro-esophageal reflux disease without esophagitis; N40.0 Benign prostatic hyperplasia without lower urinary tract symptoms; M79.642 Pain in left hand; M79.641 Pain in right hand; H93.19 Tinnitus, unspecified ear; G89.29 Other chronic pain; E78.2 Mixed hyperlipidemia; F32.9 Major depressive disorder, single episode, unspecified; Z90.49 Acquired absence of other specified parts of digestive tract; Z88.2 Allergy status to sulfonamides; Z82.49 Family history of ischemic heart disease and other diseases of the circulatory system; Z80.9 Family history of malignant neoplasm, unspecified; Z83.49 Family history of other endocrine, nutritional and metabolic diseases; Z68.43 Body mass index [BMI] 50.0-59.9, adult; Z83.3 Family history of diabetes mellitus; Z81.8 Family history of other mental and behavioral disorders; Z83.518 Family history of other specified eye disorder
CPT/HCPCS: 43775; 88307; A9270-GY; J0330; J0690; J1100; J1170; J1240; J1644; J1885; J2250; J2405; J2704; J3010

== ENCOUNTER 2022-11-22 05:49 | Observation (INO) ==
[2022-11-22] MEDS ORDERED: Famotidine IV 10 MG/ML 2 ml VIAL (20 mg) IV ONE (06:00)
[2022-11-22] MEDS ORDERED: Lactated Ringers 1000 ml BAG 1,000 ML IV SCH (06:00)
[2022-11-22] MEDS ORDERED: Buffered Lidocaine 1% SYRIN 1 ml INTRADERM ONE (06:00)
[2022-11-22] MEDS ORDERED: Famotidine IV 10 MG/ML 2 ml VIAL (20 mg) ONE (06:18)
[2022-11-22] MEDS ORDERED: ceFAZolin *3* GM in NS PREMIX 3 GM/100 ML BAG IV ONE (06:18)
[2022-11-22] MEDS ORDERED: fentaNYL 100 mcg/2 ml 50 MCG/ML VIAL ONE (06:28)
[2022-11-22] MEDS ORDERED: Midazolam 5 mg/5 ml VIAL 1 mg/ml 5 ml VIAL (5 mg) ONE (06:29)
[2022-11-22] MEDS ORDERED: Lidocaine 2% PF 5 ML VIAL ONE (06:29)
[2022-11-22] MEDS ORDERED: ROPIVACAINE 5 MG/ML 30 ML BTL (0.5%) ONE (06:46)
[2022-11-22] MEDS ORDERED: Ropivacaine 5 MG/ML 20 ML VIAL 0.5% (100 MG) ONE (06:46)
[2022-11-22] MEDS ORDERED: Lidocaine 1% MPF 5 ML VIAL ONE (06:46)
[2022-11-22] MEDS ORDERED: Dexamethasone IV 4 MG/ML VIAL 1 ml VIAL ONE (08:12)
[2022-11-22] MEDS ORDERED: Ondansetron 4 mg VIAL 2 MG/ML 2 ml VIAL ONE (08:12)
[2022-11-22] MEDS ORDERED: Propofol 10 MG/ML 20 ML BTL ONE ×2 (08:29→09:18)
[2022-11-22] MEDS ORDERED: Ondansetron 4 mg VIAL 2 MG/ML 2 ml VIAL IV PRN (08:48)
[2022-11-22] MEDS ORDERED: Magnesium Hydroxide LIQ 30 ML UDC PO PRN (08:48)
[2022-11-22] MEDS ORDERED: Lactulose 30 ml UDC PO PRN (08:48)
[2022-11-22] MEDS ORDERED: Morphine 2 MG/ML SYRINGE IV PRN (08:48)
[2022-11-22] MEDS ORDERED: Ondansetron ODT 4 mg TAB 4 MG TAB PO PRN (08:48)
[2022-11-22] MEDS ORDERED: Acetaminophen IV 1 GM/100ML 1,000 MG/100 ML BAG IV ONE (08:49)
[2022-11-22] MEDS ORDERED: Naloxone 0.4 mg VIAL 0.4 mg/ml 1 ml VIAL IV PRN (09:06)
[2022-11-22] MEDS: Lactated Ringers 1000 ml BAG 1,000 ML IV SCH ×2 (11:42→22:32)
[2022-11-22] MEDS: Vitamin THERAPEUTIC TAB PO SCH (12:01)
[2022-11-22] MEDS: Magnesium Hydroxide LIQ 30 ML UDC PO SCH ×2 (12:02→20:55)
[2022-11-22] MEDS: ceFAZolin 1 GM ADVAN 1 GM in NS 0.9% 50 ML 50 ML IVPB SCH (16:16)
[2022-11-23] MEDS: ceFAZolin 1 GM ADVAN 1 GM in NS 0.9% 50 ML 50 ML IVPB SCH ×2 (01:15→08:32)
[2022-11-23 05:58] LABS: Hematocrit 41 % (42-52); Hemoglobin 13.4 g/dL (14.0-18.0); Mean Platelet Volume 7.4 fL (7.4-10.4); Platelet Count 218 10^3/uL (150-450)
[2022-11-23 06:13] LABS: Creatinine, Serum 0.98 mg/dL (0.67-1.17); Potassium 3.9 mmol/L (3.5-5.0); eGFR CKD-EPI 90.5 (>60)
[2022-11-23] MEDS: Vitamin THERAPEUTIC TAB PO SCH (08:34)
[2022-11-23] MEDS: Magnesium Hydroxide LIQ 30 ML UDC PO SCH (08:35)
[2022-11-23 11:31] VITALS: BP 130/76
== END 2022-11-23 14:30 | disposition home or self-care (01) ==
LOC: SSU → AA 05:49 → INTOOBSV 05:49
PROVIDERS: ADMIT Orthopaedic Surgery Adult Reconstructive Orthopaedic Surgery; ATTEND Orthopaedic Surgery Adult Reconstructive Orthopaedic Surgery